=== PATIENT | female | born 1995 | race African-American/Black ===

== ENCOUNTER 2017-06-30 16:42 | Emergency (ER) | payer MEDICAID | END 2017-06-30 18:41 | disposition home or self-care (01) | LOC: E/R 16:42 | DX: S80.262A Insect bite (nonvenomous), left knee, initial encounter (principal); W57.XXXA Bitten or stung by nonvenomous insect and other nonvenomous arthropods, initial encounter; Y92.9 Unspecified place or not applicable | CPT/HCPCS: 99283; Z7502 ==